=== PATIENT | female | born 1975 | race Caucasian/White ===

== ENCOUNTER 2016-08-05 09:16 | Emergency (ER) | payer OTHER ==
[~2016-08-05] VITALS: Wt 64.0 kg
[~2016-08-05 09:16] MED LIST: FAMO-18 PO; FERR27TA; HYDR-3498 PO; PREN1TAB49
[2016-08-05] MEDS ORDERED: ACETAMINOPHEN 500 MG TAB PO STA (09:38)
[2016-08-05] MEDS ORDERED: IBUPROFEN 600 MG TAB PO ONE (10:00)
--- NOTE | 2016-08-05 10:11 | RADRPT ---
PROCEDURE: XR Chest AP portable CLINICAL INDICATION: Fever, cough times 4 days TECHNIQUE: An AP portable radiograph of the chest was submitted. COMPARISON: None. FINDINGS: Support Hardware: None Cardiovascular: The cardiovascular silhouette appears unremarkable. Lung Vaughn: The lung vaughn appear clear with no nodule, alveolar infiltrate, or interstitial promi nence evident. Pleural Spaces: No pneumothorax or pleural effusion is identified. Osseous Structures: The osseous structures appear intact. Soft Tissues: The soft tissues appear unremarkable. IMPRESSION: Unremarkable portable chest. Physician Henrry Date Time Electronically viewed and signed by Physician Henrry on 08/05/2016 10:11 /
[2016-08-05] MEDS ORDERED: IBUP-1542 PO (10:21)
--- NOTE | 2016-08-05 10:21 | ERD ---
ER Documentation Chief Complaint Date/Time DATE: 08/05/16 TIME: 10:15 Chief Complaint cough, fever, bodyaches HPI This 40-year-old female presents to the emergency department today complaining of cough, sore throat, fever, nasal congestion, body aches for the past 4 days. Patient states she has a history of asthma and has been using an inhaler periodically. States she last took Motrin at 3 this morning. Denies any vomiting or diarrhea. ROS All systems reviewed and are negative except as per history of present illness. Medications Home Meds Active Scripts Famotidine* (Pepcid*) 20 Mg Tablet, 20 MG PO BID, #14 TAB Prov:ITA COTTRELL-Nathanael 09/21/15 Hydrocodone Bit-Acetaminophen* ([place]*) 5-325 Mg Tab, 1 TAB PO Q4H Y for PAIN, # 7 TAB Prov:ITA COTTRELL PA-C 09/21/15 Reported Medications Ferrous Sulfate (Iron) 1 Tab Tablet 08/04/10 Vits W-Ca,Fe,Fa(<1MG) () 1 Tab Tablet 08/04/10 Allergies Allergies: Coded Allergies: No Known Drug Allergies (Verified Allergy, Mild, 08/05/16) PMhx/Soc Medical and Surgical Hx: pt denies Medical Hx, pt denies Surgical Hx History of Surgery: No Anesthesia Reaction: No Hx Neurological Disorder: No Hx Respiratory Disorders: No Hx Cardiac Disorders: No Hx Psychiatric Problems: No Hx Miscellaneous Medical Probl: No Hx Alcohol Use: No Hx Substance Use: No Hx Tobacco Use: No Smoking Status: Never smoker Physical Exam Vitals Vital Signs Date Time Temp Pulse Resp B/P Pulse Ox O2 Delivery O2 Flow Rate FiO2 08/05/16 09:20 101.9 102 18 146/82 96 Physical Exam Const: No acute distress Head: Atraumatic Eyes: Normal Conjunctiva ENT: Ears TMs normal. Nose no drainage. Throat no erythema no exudate Neck: Full range of motion..~ No meningismus. Resp: Coarse breath sounds bilaterally in all lung bell. No wheezing. Cardio: Regular rate and rhythm, no murmurs Abd: Soft, non tender, non distended. Normal bowel sounds Skin: No petechiae or rashes Neur: Awake and alert Psych: Normal Mood and Affect Results 24 hrs Current Medications Medications (Trade) Dose Ordered Sig/Ilene Route PRN Reason Start Time Stop Time Status Last Admin Dose Admin Ibuprofen (Motrin) 600 mg ONCE ONCE PO 08/05/16 10:00 08/05/16 10:04 DC Acetaminophen (Tylenol Tab) 500 mg ONCE STAT PO 08/05/16 09:38 08/05/16 10:04 DC DIAGNOSTIC IMAGING REPORT Patient: LUPE STAFFORD : 1975 Age: 40 Sex: F MR #: [id number] DOS: 08/05/16 0000 Ordering MD: DILIA CALDWELL PA-C Location: [facility] Room/Bed: PROCEDURE: XR Chest AP portable CLINICAL INDICATION: Fever, cough times 4 days TECHNIQUE: An AP portable radiograph of the chest was submitted. COMPARISON: None. FINDINGS: Support Hardware: None Cardiovascular: The cardiovascular silhouette appears unremarkable. Lung Bell: The lung bell appear clear with no nodule, alveolar infiltrate, or interstitial prominence evident. Pleural Spaces: No pneumothorax or pleural effusion is identified. Osseous Structures: The osseous structures appear intact. Soft Tissues: The soft tissues appear unremarkable. IMPRESSION: Unremarkable portable chest. Physician Henrry Date Time Electronically viewed and signed by Physician Henrry on 08/05/2016 10:11 RH/ CC: DILIA CALDWELL PA-C Procedures/MDM This a 40-year-old female who presents the emergency department today complaining of influenza-like symptoms however patient did have some coarse breath sounds on physical exam. She was febrile and tachycardic here in the emergency department and therefore did obtain a chest x-ray. Chest x-ray is unremarkable. There is no pneumothorax or pleural effusion. Lung bell are clear without nodule, alveolar infiltrate or interstitial prominence. Patient's physical exam is otherwise benign. Low suspicion for strep pharyngitis, peritonsillar abscess, retropharyngeal abscess, otitis media, PNA, sinusitis, abscess, meningitis, sepsis, or other acute infectious bacterial process. Patient's temperature was 101.9 here in the emergency department. She was given Tylenol and Motrin. Patient was given a prescription for Tylenol, Motrin , Robitussin, Flonase. She may continue using her inhaler as needed. Patient has had symptoms for 4 days and I do not feel that she would benefit from Tamiflu at this time. I have explained this to her. I have explained her that she may have symptoms for the next week. 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 At this time the patient is stable for discharge and outpatient management. They should follow up with their PCP in the next 1-2. They may return to the emergency department sooner if symptoms persist or worsen. Patient understood and agreed with the plan. DILIA CALDWELL PA-C Aug 05, 2016 10:21
[2016-08-05] MEDS ORDERED: UDROBDM PO (10:22)
[2016-08-05] MEDS ORDERED: ACET500C5 PO (10:22)
[2016-08-05] MEDS ORDERED: FLUT9.9S NASAL (10:22)
== END 2016-08-05 10:32 | disposition home or self-care (01) ==
LOC: FTE 09:16
DX: R05 Cough (principal); J02.9 Acute pharyngitis, unspecified; R50.9 Fever, unspecified; R09.81 Nasal congestion; R52 Pain, unspecified; J45.909 Unspecified asthma, uncomplicated
CPT/HCPCS: 71010; Z7502; Z7610

== ENCOUNTER 2017-01-06 10:46 | Emergency (ER) | payer OTHER ==
[~2017-01-06] VITALS: Ht 160 cm; Wt 89.0 kg
[~2017-01-06 10:46] MED LIST changes: +ACET500C5 PO; -FAMO-18 PO; +FAMO-96 PO; +FLUT9.9S NASAL; +IBUP-1542 PO; +UDROBDM PO
[2017-01-06 10:49] VITALS: Ht 160 cm; Wt 89.0 kg
[2017-01-06] MEDS ORDERED: ONDANSETRON 4 MG INJ IM STA (11:01)
[2017-01-06 11:19] LABS: URINE BLOOD (Dip) POC 3+ (NEGATIVE)
[2017-01-06] MEDS ORDERED: morphine 10 MG INJ IM ONE (11:30)
[2017-01-06] MEDS ORDERED: ONDA4TAB11 PO (13:44)
[2017-01-06] MEDS ORDERED: CIPR500T4 PO (13:44)
[2017-01-06] MEDS ORDERED: NITR-58 PO (13:44)
[2017-01-06] MEDS ORDERED: NAPR-688 PO (13:44)
--- NOTE | 2017-01-06 13:49 | ERD ---
ER Documentation Chief Complaint Date/Time DATE: 01/06/17 TIME: 13:46 Chief Complaint dysuria/hematuria since yesterday HPI This 41-year-old female presented with burning on urination that began yesterday. She has suprapubic pain that radiates to her right flank. She also has nausea. No fevers or chills. She is otherwise healthy and has no diabetes. ROS All systems reviewed and are negative except as per history of present illness. Medications Home Meds Active Scripts Nitrofurantoin Monohyd Macrocr* (Macrobid*) 100 Mg Capsr, 100 MG PO BID for 3 Days, CAP Prov:JO LINN DO 01/06/17 Ondansetron (Zofran Odt) 4 Mg Tab.rapdis, 4 MG PO Q6 for NAUSEA AND/OR VOMITING , #10 Prov:JO LINN DO 01/06/17 Naproxen* (Naproxen*) 500 Mg Tablet, 500 MG PO BID Y for q6, #20 TAB Prov:JO LINN DO 01/06/17 Ciprofloxacin Hcl* (Ciprofloxacin Hcl*) 500 Mg Tablet, 500 MG PO BID for 10 Days , TAB Prov:JO LINN DO 01/06/17 Fluticasone Propionate (Flonase Allergy Relief) 9.9 Ml [place].susp, 2 SPRAY NASAL DAILY, #1 BOTTLE TO EACH NOSTRIL Prov:DILIA CALDWELL PA-C 08/05/16 Guaifenesin-Dextromethorphan* (Robitussin* DM) 100MG/10MG/5ML Syrup, 10 ML PO Q6H Y for COUGH for 5 Days, ML Prov:DILIA CALDWELL PA-C 08/05/16 Acetaminophen* (Tylophen*) 500 Mg Capsule, 1 CAP PO Q6H Y for PAIN AND OR ELEVATED TEMP, #30 CAP Prov:DILIA CALDWELL PA-C 08/05/16 Ibuprofen* (Motrin*) 600 Mg Tab, 600 MG PO Q6, #30 TAB Prov:DILIA CALDWELL PA-C 08/05/16 Famotidine* (Pepcid*) 20 Mg Tablet, 20 MG PO BID, #14 TAB Prov:ITA COTTRELL PA-C 09/21/15 Hydrocodone Bit-Acetaminophen* ([place]*) 5-325 Mg Tab, 1 TAB PO Q4H Y for PAIN, # 7 TAB Prov:ITA COTTRELL PA-C 09/21/15 Reported Medications Ferrous Sulfate (Iron) 1 Tab Tablet 08/04/10 Vits W-Ca,Fe,Fa(<1MG) () 1 Tab Tablet 08/04/10 Allergies Allergies: Coded Allergies: No Known Drug Allergies (Verified Allergy, Mild, 08/05/16) PMhx/Soc History of Surgery: No Anesthesia Reaction: No Hx Neurological Disorder: No Hx Respiratory Disorders: No Hx Cardiac Disorders: No Hx Psychiatric Problems: No Hx Miscellaneous Medical Probl: No Hx Alcohol Use: No Hx Substance Use: No Hx Tobacco Use: No Smoking Status: Never smoker Physical Exam Vitals Vital Signs Date Time Temp Pulse Resp B/P Pulse Ox O2 Delivery O2 Flow Rate FiO2 01/06/17 10:49 98.1 76 18 139/77 99 Physical Exam Const: [] Moderate distress Head: Atraumatic Eyes: Normal Conjunctiva ENT: Normal External Ears, Nose and Mouth. Neck: Full range of motion..~ No meningismus. Resp: Clear to auscultation bilaterally Cardio: Regular rate and rhythm, no murmurs Abd: Soft, Mild suprapubic tenderness without guarding or rebound, non distended. Normal bowel sounds Skin: No petechiae or rashes Back: No midline or flank tenderness Ext: No cyanosis, or edema Neur: Awake and alert Psych: Normal Mood and Affect Results 24 hrs Laboratory Tests Test 01/06/17 11:26 Bedside Urine pH (LAB) 6.0 Bedside Urine Protein (LAB) 2+ Bedside Urine Glucose (UA) Negative Bedside Urine Ketones (LAB) Negative Bedside Urine Blood 3+ Bedside Urine Nitrite (LAB) Negative Bedside Urine Leukocyte Esterase (L 2+ Current Medications Medications (Trade) Dose Ordered Sig/Ilene Route PRN Reason Start Time Stop Time Status Last Admin Dose Admin Ondansetron HCl (Zofran Inj) 4 mg ONCE STAT IM 01/06/17 11:01 01/06/17 11:03 DC 01/06/17 11:18 Morphine Sulfate (morphine) 4 mg ONCE ONCE IM 01/06/17 11:30 01/06/17 11:31 DC 01/06/17 11:18 Procedures/MDM UTI with flank pain indicating early pyelonephritis. She was given morphine and Zofran IM for her pain this resolved her symptoms. No signs of sepsis. She is feeling much better. I am going to discharge her with Cipro for 10 days as well as Macrobid for 3 days, naproxen and Zofran. Return precautions the ER given as well as primary care follow-up in 2-3 days. Departure Diagnosis: Primary Impression: Pyelonephritis Condition: Stable Patient Instructions: Pyelonephritis, Female (Adult) Additional Instructions: Llame al doctor MAANA y lauren mikael RADHA PARA DENTRO DE 2-3 PIERCE.Dgale a la secretaria que nosotros le instruimos hacer esta radha.Avise o llame si garner condicin se empeora antes de la radha. Regresa aqui si peor o no mejor. JO LINN DO Jan 06, 2017 13:49
== END 2017-01-06 13:55 | disposition home or self-care (01) ==
LOC: FTE 10:46
DX: N12 Tubulo-interstitial nephritis, not specified as acute or chronic (principal)
CPT/HCPCS: 81003; 96372; J2270; J2405; Z7502

== ENCOUNTER 2018-06-13 10:28 | Emergency (ER) | payer OTHER ==
[~2018-06-13] VITALS: Ht 152.4 cm; Wt 66.7 kg
[~2018-06-13 10:28] MED LIST changes: +CIPR500T4 PO; +GUAI5SYR2 PO; +NAPR-688 PO; +NITR-58 PO; +ONDA4TAB11 PO; -UDROBDM PO
[2018-06-13 10:30] VITALS: Ht 152.4 cm; Wt 66.7 kg
[2018-06-13] MEDS ORDERED: SOD CHLORIDE 0.9% 1,000 ML IV STA (11:20)
[2018-06-13] MEDS ORDERED: ONDANSETRON 4 MG INJ IV STA ×2 (11:20→12:39)
[2018-06-13] MEDS ORDERED: morphine 4 MG/ML VIAL IV STA (11:20)
[2018-06-13] MEDS ORDERED: KETOROLAC 30 MG INJ IV STA (12:08)
[2018-06-13] MEDS ORDERED: FAMOTIDINE 20 MG INJ IV ONE (12:30)
[2018-06-13] MEDS ORDERED: HYDROmorphONE 0.5 MG/0.5 ML SYG IV STA (12:38)
[2018-06-13] MEDS ORDERED: OMEP20CA16 PO (14:20)
[2018-06-13] MEDS ORDERED: FAMO-96 PO (14:20)
[2018-06-13] MEDS ORDERED: ACET325T33 PO (14:22)
[2018-06-13] MEDS ORDERED: ONDA8TAB14 PO (14:22)
--- NOTE | 2018-06-13 14:28 | ERD ---
ER Documentation Chief Complaint Chief Complaint ABD PAIN X 4 DAYS; DENIES N/V HPI 42-year-old female status post cholecystectomy 1 year prior being seen presents to the ED complaining of 9/10 localized waxing and waning epigastric abdominal pain for the past 4 days. Patient admits to having nausea. She denies vomiting, diarrhea, constipation. Patient states that she took Tylenol at 5 AM with no relief. Last meal was at 6 PM yesterday in which she consumed ROS All systems reviewed and are negative except as per history of present illness. Medications Home Meds Active Scripts Acetaminophen* (Tylenol*) 325 Mg Tablet, 2 TAB PO Q6 PRN for PAIN AND OR ELEVATED TEMP, #30 TAB Prov:ELLIOTT REHMAN PA-C 06/13/18 Ondansetron (Ondansetron Odt) 8 Mg Tab.rapdis, 8 MG PO Q8 PRN for NAUSEA AND/OR VOMITING, #30 TAB Prov:ELLIOTT REHMAN PA-C 06/13/18 Famotidine* (Pepcid*) 20 Mg Tablet, 20 MG PO QHS for 5 Days, TAB Prov:ELLIOTT REHMAN PA-C 06/13/18 Omeprazole* (Omeprazole*) 20 Mg Capsule.dr, 20 MG PO DAILY, #14 Prov:ELLIOTT REHMAN PA-C 06/13/18 Nitrofurantoin Monohyd Macrocr* (Macrobid*) 100 Mg Capsr, 100 MG PO BID for 3 Days, CAP Prov:JO LINN DO 01/06/17 Ondansetron (Zofran Odt) 4 Mg Tab.rapdis, 4 MG PO Q6 for NAUSEA AND/OR VOMITING, #10 Prov:JO LINN DO 01/06/17 Naproxen* (Naproxen*) 500 Mg Tablet, 500 MG PO BID PRN for q6, #20 TAB Prov:JO LINN DO 01/06/17 Ciprofloxacin Hcl* (Ciprofloxacin Hcl*) 500 Mg Tablet, 500 MG PO BID for 10 Days, TAB Prov:JO LINN DO 01/06/17 Fluticasone Propionate (Flonase Allergy Relief) 9.9 Ml [place].susp, 2 SPRAY NASAL DAILY, #1 BOTTLE TO EACH NOSTRIL Prov:PROUSE,DILIA M. PA-C 08/05/16 Guaifenesin-Dextromethorphan* (Robitussin* DM) 100MG/10MG/5ML Syrup, 10 ML PO Q6H PRN for COUGH for 5 Days, ML Prov:DILIA CALDWELL PA-C 08/05/16 Acetaminophen* (Tylophen*) 500 Mg Capsule, 1 CAP PO Q6H PRN for PAIN AND OR ELEVATED TEMP, #30 CAP Prov:DILIA CALDWELL PA-C 08/05/16 Ibuprofen* (Motrin*) 600 Mg Tab, 600 MG PO Q6, #30 TAB Prov:DILIA CALDWELL PA-C 08/05/16 Famotidine* (Pepcid*) 20 Mg Tablet, 20 MG PO BID, #14 TAB Prov:ITA COTTRELL PA-C 09/21/15 Hydrocodone Bit-Acetaminophen* ([place]*) 5-325 Mg Tab, 1 TAB PO Q4H PRN for PAIN, #7 TAB Prov:ITA COTTRELL PA-C 09/21/15 Reported Medications Ferrous Sulfate (Iron) 1 Tab Tablet 08/04/10 Vits W-Ca,Fe,Fa(<1MG) () 1 Tab Tablet 08/04/10 Allergies Allergies: Coded Allergies: No Known Drug Allergies (Verified Allergy, Mild, 08/05/16) PMhx/Soc History of Surgery: No Anesthesia Reaction: No Hx Neurological Disorder: No Hx Respiratory Disorders: No Hx Cardiac Disorders: No Hx Psychiatric Problems: No Hx Miscellaneous Medical Probl: No Hx Alcohol Use: No Hx Substance Use: No Hx Tobacco Use: No Physical Exam Vitals Vital Signs Date Temp Pulse Resp B/P (MAP) Pulse Ox O2 O2 Flow FiO2 Time Delivery Rate 06/13/18 97.8 61 16 120/76 99 Room Air 14:31 (91) 06/13/18 98.1 78 18 145/86 99 10:30 (105) Physical Exam Const: No acute distress Head: Atraumatic Eyes: Normal Conjunctiva ENT: Normal External Ears, Nose and Mouth. Neck: Full range of motion. No meningismus. Resp: Clear to auscultation bilaterally Cardio: Regular rate and rhythm, no murmurs Abd: Soft, non distended. Normal bowel sounds tender to palpation in the epigastric region. Tender to palpation in the left lower quadrant. Negative McBurney's negative Boyd's negative psoas and obturators Skin: No petechiae or rashes Back: No midline or flank tenderness Ext: No cyanosis, or edema Neur: Awake and alert Psych: Normal Mood and Affect Result Diagram: 06/13/18 1143 06/13/18 1143 Results 24 hrs Laboratory Tests Test 06/13/18 11:42 06/13/18 11:43 06/13/18 11:45 Urine Color YELLOW Urine Clarity SLIGHTLY CLOUDY Urine pH 5.0 Urine Specific [place] 1.023 Urine Ketones NEGATIVE mg/dL Urine Nitrite NEGATIVE mg/dL Urine Bilirubin NEGATIVE mg/dL Urine Urobilinogen NEGATIVE mg/dL Urine Leukocyte Esterase 1+ [place]/ul Urine Microscopic RBC 1 /HPF Urine Microscopic WBC 1 /HPF Urine Squamous Epithelial Cells MODERATE /HPF Urine Bacteria FEW /HPF Urine Mucus FEW /HPF Urine Hemoglobin NEGATIVE mg/dL Urine Glucose NEGATIVE mg/dL Urine Total Protein NEGATIVE mg/dl White Blood Count 8.3 10^3/ul Red Blood Count 4.21 10^6/ul Hemoglobin 12.6 g/dl Hematocrit 38.3 % Mean Corpuscular Volume 91.0 fl Mean Corpuscular Hemoglobin 29.9 pg Mean Corpuscular 32.9 g/dl Hemoglobin Concent Red Cell Distribution Width 12.1 % Platelet Count 266 10^3/UL Mean Platelet Volume 10.8 fl Immature Granulocytes % 0.400 % Neutrophils % 64.9 % Lymphocytes % 28.8 % Monocytes % 4.9 % Eosinophils % 0.6 % Basophils % 0.4 % Nucleated Red Blood Cells % 0.0 /100WBC Immature Granulocytes # 0.030 10^3/ul Neutrophils # 5.4 10^3/ul Lymphocytes # 2.4 10^3/ul Monocytes # 0.4 10^3/ul Eosinophils # 0.1 10^3/ul Basophils # 0.0 10^3/ul Nucleated Red Blood Cells # 0.0 10^3/ul Sodium Level 139 mmol/L Potassium Level 4.0 mmol/L Chloride Level 104 mmol/L Carbon Dioxide Level 26 mmol/L Anion Gap 9 Blood Urea Nitrogen 14 mg/dl Creatinine 0.56 mg/dl Est Glomerular Filtrat > 60 mL/min Rate mL/min Glucose Level 94 mg/dl Calcium Level 9.7 mg/dl Total Bilirubin 0.2 mg/dl Direct Bilirubin 0.00 mg/dl Indirect Bilirubin 0.2 mg/dl Aspartate Amino 23 IU/L Transf (AST/SGOT) Alanine 17 IU/L Aminotransferase (ALT/SGPT) Alkaline Phosphatase 63 IU/L Troponin I < 0.012 ng/ml Total Protein 8.0 g/dl Albumin 4.6 g/dl Globulin 3.40 g/dl Albumin/Globulin Ratio 1.35 Lipase 63 U/L POC Beta HCG, Qualitative NEGATIVE Current Medications Medications Dose Sig/Ilene Start Time Status Last (Trade) Ordered Route PRN Stop Time Admin Dose Reason Admin Sodium 1,000 ml @ Q1H STAT 06/13/18 DC 06/13/18 Chloride 1,000 mls/hr IV 11:20 11:45 06/13/18 12:19 Morphine 4 mg ONCE STAT 06/13/18 DC 06/13/18 Sulfate IV 11:20 11:45 (morphine) 06/13/18 11:22 Ondansetron 4 mg ONCE STAT 06/13/18 DC 06/13/18 HCl (Zofran IV 11:20 11:45 Inj) 06/13/18 11:22 Ketorolac 30 mg ONCE STAT 06/13/18 DC 06/13/18 Tromethamine IV 12:08 12:19 (Toradol) 06/13/18 12:09 Famotidine 20 mg ONCE ONCE 06/13/18 DC 06/13/18 (Pepcid Iv) IV 12:30 12:37 06/13/18 12:31 0.5 mg ONCE STAT 06/13/18 DC 06/13/18 Hydromorphone IV 12:38 12:51 HCl 06/13/18 12:39 (Dilaudid) Ondansetron 4 mg ONCE STAT 06/13/18 DC 06/13/18 HCl (Zofran IV 12:39 12:51 Inj) 06/13/18 12:40 Procedures/MDM 42-year-old female status post Irma presents to the ED planing of epigastric abdominal pain for the past 4 days her differentials include but not limited to esophagitis, gastritis, PUD, versus other. Patient's pain has stabilized in the ED, she is afebrile and well-appearing to be discharged home to follow-up with her primary care physician. I have given patient prescription for Prilosec, Pepcid and Tylenol. I instructed her to follow-up with her primary care physic jason tomorrow to get further testing including H. pylori. In the ED, t lab work was drawn. CBC did not show any evidence of leukocytosis or anemia. CMP did not show any evidence of renal, liver, or electrolyte abnormalities. Lipase was normal. UA did not show any evidence of hemoglobin or urinary tract infection. CT abd and pelvis without contrast 1. Status post cholecystectomy. 2. IUD is seen in normal position within the uterus. 3. No evidence of bowel obstruction, mass, lymphadenopathy, or acute inflammatory process. Abd US The liver demonstrates normal echogenicity. The liver is normal in size and no focal solid lesions are seen. The liver measures 15.9 cm in length. The portal vein is patent with normal direction of flow. No intrahepatic biliary dilatation is seen. The patient is status post cholecystectomy. The common bile duct measures 4 mm in maximal dimension. The visualized portions of the pancreas are unremarkable. The tail of the pancreas is not seen. No free fluid is identified. The right kidney is normal in size, and demonstrate normal echogenicity and cortical thickness. The right kidney measures 10 cm in long dimension. There is no evidence of hydronephrosis. There are no kidney stones. Departure Diagnosis: Primary Impression: Epigastric pain Condition: Stable Patient Instructions: Gerd (Adult), Epigastric Pain (Uncertain Cause) Additional Instructions: Visite a garner manny echevarria para un EXAMEN.Regrese a estas instalaciones si no se mejora gregg esperbamos o gregg le dijimos. Why toda la medicina tiana y gregg se le indic. Regrese a estas instalaciones si no se mejora gregg esperbamos o gregg le dijimos. ELLIOTT REHMAN PA-C Jun 13, 2018 14:28
[2018-06-13 14:31] VITALS: BP 120/76; PULSE 61; RESP 16
== END 2018-06-13 14:32 | disposition home or self-care (01) ==
LOC: FTE 10:28
DX: R10.13 Epigastric pain (principal)
CPT/HCPCS: 36415; 74176; 76705; 80053; 81001; 81025; 83690; 84484; 85025; 87086; 96361; 96374; 96375; 96376; J1170; J1885; J2270; J2405; J7030; Z7502; Z7610